=== PATIENT | female | born 1995 | race Caucasian/White ===

== ENCOUNTER 2023-05-06 10:39 | Outpatient (CLI) | payer BC ==
[~2023-05-06 10:39] MED LIST: Iopamidol 300 61% 30 ML VIAL ONE
[2023-05-06 11:22] LABS: BHCG - Serum Negative (NEGATIVE); Pregs Control Background? CLEAR/WHITE (CLR/WHITE); Pregs Control Bar Appear? YES (CONTROL BAR)
== END 2023-05-06 10:40 | disposition home or self-care (01) ==
LOC: RAD 10:39
PROVIDERS: ATTEND Advanced Practice Midwife
DX: Z32.00 Encounter for pregnancy test, result unknown (principal); Z78.9 Other specified health status
CPT/HCPCS: 58340; 74740; 84703; Q9967